=== PATIENT | male | born 1970 | race Caucasian/White ===

== ENCOUNTER 2023-07-06 06:12 | Day surgery (SDC) | payer OTHER ==
[~2023-07-06] VITALS: Ht 172.7 cm; Wt 162.8 kg
[~2023-07-06 06:12] MED LIST: AMPICILLIN SOD/SULBACTAM SOD 3 GM in D5W MINI-BAG PLUS 100 ML IV ONE; ATOR40TA75 PO; BENA1TAB23 PO; BUPR300T92 PO; ERGO500029; FARX1TAB3 PO; FENO134C20 PO; INSU100V6; LEVO200T4 PO; LEVO50TA5 PO; OMEP-173 PO; PREG100C2 PO; SALMDISK
[2023-07-06] MEDS ORDERED: INSULIN LISPRO (NovoLOG) PER UNIT SC PRN (06:35)
[2023-07-06] MEDS ORDERED: LR 1,000 ML IV SCH ×2 (06:35→09:00)
[2023-07-06] MEDS ORDERED: GLUCOSE 4GM CHEW TABLET PO PRN (06:35)
[2023-07-06] MEDS ORDERED: GLUCAGON INJ 1MG VIAL SC PRN (06:35)
[2023-07-06] MEDS ORDERED: DEXTROSE 50% 50ML SYRINGE IV PRN (06:35)
[2023-07-06] MEDS ORDERED: CHLORHEXIDINE GLUCONATE 0.12 % 15ML UDC (PERIDEX ORAL RINSE) As Ordered ONE (07:15)
[2023-07-06] MEDS ORDERED: LIDOCAINE 2% W/ EPINEPHRINE 1.7 ML DENTAL INJ As Ordered ONE ×3 (07:15→07:19)
[2023-07-06] MEDS ORDERED: MEPIVACAINE HCL 3 % 1.7 ML DENTAL CARTRIDGE (CARBOCAINE) As Ordered ONE (07:16)
[2023-07-06] MEDS ORDERED: OXYMETAZOLINE 0.05% NASAL SPRAY (AFRIN) As Ordered ONE (07:36)
[2023-07-06] MEDS ORDERED: propofoL 200 MG/20 ML VIAL As Ordered ONE (08:04)
[2023-07-06] MEDS ORDERED: ONDANSETRON 4MG 2ML VIAL As Ordered ONE (08:04)
[2023-07-06] MEDS ORDERED: SUGAMMADEX SODIUM 500 MG/5 ML VIAL (BRIDION) As Ordered ONE (08:04)
[2023-07-06] MEDS ORDERED: LIDOCAINE 2% 100MG/5ML SDV (FOR ANES.) As Ordered ONE (08:04)
[2023-07-06] MEDS ORDERED: ROCURONIUM BROMIDE 50MG/5ML VIAL As Ordered ONE (08:04)
[2023-07-06] MEDS ORDERED: ACETAMINOPHEN 1000MG 100ML IV BAG As Ordered ONE (08:04)
[2023-07-06] MEDS ORDERED: MIDAZOLAM INJ 2MG/2ML VIAL As Ordered ONE (08:04)
[2023-07-06] MEDS ORDERED: fentaNYL 100 MCG/2 ML INJECTION As Ordered ONE (08:04)
[2023-07-06] MEDS ORDERED: METOCLOPRAMIDE INJ 10MG/2ML VIAL As Ordered ONE (08:14)
[2023-07-06] MEDS ORDERED: METOCLOPRAMIDE INJ 10MG/2ML VIAL IV PRN (09:00)
[2023-07-06] MEDS ORDERED: ONDANSETRON 4MG 2ML VIAL IV PRN (09:00)
[2023-07-06] MEDS ORDERED: fentaNYL 100 MCG/2 ML INJECTION IV PRN (09:00)
[2023-07-06] MEDS ORDERED: oxyCODONE 5MG TAB PO PRN (09:00)
[2023-07-06] MEDS ORDERED: HYDROMORPHONE HCL 0.5 MG/ 0.5 ML SYRINGE IV PRN (09:00)
[2023-07-06 10:40] VITALS: BP 140/75; TEMP 97.9; O2SAT 98
== END 2023-07-06 10:55 | disposition home or self-care (01) ==
LOC: M SDC 06:12
PROVIDERS: ATTEND Dentist
DX: K08.89 Other specified disorders of teeth and supporting structures (principal); E11.9 Type 2 diabetes mellitus without complications; G47.33 Obstructive sleep apnea (adult) (pediatric); E03.9 Hypothyroidism, unspecified; K21.9 Gastro-esophageal reflux disease without esophagitis; F41.9 Anxiety disorder, unspecified; F32.A Depression, unspecified; Z88.5 Allergy status to narcotic agent; Z88.8 Allergy status to other drugs, medicaments and biological substances; Z79.899 Other long term (current) drug therapy; Z79.890 Hormone replacement therapy; Z79.84 Long term (current) use of oral hypoglycemic drugs; Z79.51 Long term (current) use of inhaled steroids
CPT/HCPCS: 88300; D7140; D7210; D9223; J0131; J0670; J2250; J2405; J2765; J3010